=== PATIENT | male | born 1975 | race Caucasian/White ===

== ENCOUNTER 2017-07-15 16:39 | Observation (INO) ==
[2017-07-15] MEDS ORDERED: Aspirin 81 MG TAB.CHEW PO ONE (17:02)
--- NOTE | 2017-07-15 17:13 | Emergency Department Note ---
Disposition Clinical Impression: Chest pain Qualifiers: Chest pain type: unspecified Qualified Code(s): R07.9 - Chest pain, unspecified Hypertension Qualifiers: Hypertension type: unspecified Qualified Code(s): I10 - Essential (primary) hypertension Disposition: Admitted As Inpatient Condition: Good Referrals: NONE,PCP [Primary Care Provider] - Forms: ED Satisfaction Letter Time of Disposition: 18:50 Chest Pain HPI - General Chief Complaint: ED Chest Pain Stated Complaint: chest pain Time Seen by Provider: 07/15/17 16:44 Source: patient Mode of arrival: private vehicle Limitations: no limitations Vital Signs Reviewed: Yes Nursing Notes Reviewed: Yes - History of Present Illness HPI Narrative: 41-year-old male no medical history who presents to the ER with chief complaint of chest pain. Patient states he started having chest pain this morning around 9:00. Reports it was a pain in the center of his chest. No radiating features. Said he has a little short of breath during that time. No diaphoresis nausea or vomiting. No lightheadedness or dizziness. He was checked out by an EMT across the street and noted that he had high blood pressure readings. He states that his diastolic usually runs a little higher than 80. He is not on medications for hypertension. He endorses pain in the center of his chest. No recent illnesses. Denies any new anxiety or stress. No other complaints. Pt complaint: chest pain Onset (ago): hour(s) Duration: constant Onset: during rest Pain Location: substernal Severity: moderate Severity scale (1-10): 7 Quality: aching Pain Radiation: none Improves with: nothing Worsens with: nothing Associated symptoms: Reports: dyspnea. Denies: nausea, vomiting, diaphoresis Treatments prior to arrival chest pain: none - Related Data On Oral Contraceptives: No Home Medications Medication Instructions Recorded Confirmed No Known Home Drugs 07/15/17 07/15/17 Allergies Allergy/AdvReac Type Severity Reaction Status Date / Time No Known Allergies Allergy Verified 07/15/17 16:40 All systems ED: reviewed and negative except as stated. Constitutional: Denies: fever Cardiovascular: Reports: chest pain Respiratory: Reports: dyspnea. Denies: cough Gastrointestinal: Denies: abdominal pain, nausea, vomiting Chest Pain PMH - Past Medical History Medical history: Reports: other Psychiatric history: Reports: no psych history - Social History Smoking Status: Never smoker Alcohol use: Reports: occasionally Drug use: Reports: none Physical Exam - General Limitations: no limitations General appearance: alert, in no apparent distress - Head Head exam: atraumatic, normocephalic - Eye Eye exam: Present: normal appearance - ENT ENT exam: normal exam - Neck Neck exam: Present: normal inspection, full ROM - Chest Chest inspection: Present: normal inspection, symmetric chest wall rise - Respiratory Respiratory exam: Present: normal lung sounds bilaterally - Cardiovascular Cardiovascular exam: Present: regular rate, normal rhythm, normal heart sounds - Abdominal Exam Abdominal exam: Present: soft, Non-Tender. Absent: tenderness - Extremities Exam Extremities exam: Present: normal inspection, full ROM - Expanded Upper Extremity Exam Shoulder exam: Present: normal inspection, full ROM Arm exam: Present: normal inspection, full ROM Elbow exam: Present: normal inspection, full ROM Forearm/Wrist exam: Present: normal inspection, full ROM Hand exam: Present: normal inspection, full ROM - Expanded Lower Extremity Exam Hip/Pelvis exam: Present: normal inspection, full ROM Upper leg exam: Present: normal inspection, full ROM Knee exam: Present: normal inspection, full ROM Lower leg exam: Present: normal inspection, full ROM Ankle exam: Present: normal inspection, full ROM Foot/toe exam: Present: normal inspection, full ROM - Skin Skin exam: Present: warm, dry Course Course Narrative: Patient seen and examined. Vital signs reviewed. We will get an EKG, chest x- ray as well as labs including troponin. Patient is profoundly hypertensive here. Nitroglycerin ordered. - Reevaluation(s) Reevaluation #1: Chest pain-free after nitroglycerin. Hypertension has resolved. Agreeable with admission. Vital Signs Temperature 98.0 F 07/15/17 16:40 Pulse Rate 101 07/15/17 16:40 Respiratory Rate 18 07/15/17 16:40 Blood Pressure 174/103 07/15/17 16:40 O2 Sat by Pulse Oximetry 99 07/15/17 16:40 Temperature 98.0 F 07/15/17 16:40 Pulse Rate 81 07/15/17 18:37 Respiratory Rate 16 07/15/17 18:37 Blood Pressure 123/93 07/15/17 18:37 O2 Sat by Pulse Oximetry 96 07/15/17 18:37 Oxygen Delivery Oxygen Delivery Room Air Chest Pain - MDM Narrative Medical decision making narrative: 41-year-old male with a medical history presents to the ER due to chest pain and hypertension. Onset this morning. EKG without ischemic features. Chest x- ray unremarkable. Noted to be profoundly hypertensive upon arrival. Pain and hypertension resolved with nitroglycerin. Initial troponin negative. He is admitted to the hospitalist service for chest pain evaluation. - Lab Data Lab results reviewed: Yes I reviewed the patient's lab results. Result diagrams: 07/15/17 17:10 07/15/17 17:10 Lab Results 07/15/17 07/15/17 07/15/17 Range/Units 17:10 17:10 17:10 WBC 11.2 H (4.3-11.1) K/mcL RBC 5.36 (4.19-5.50) M/mcL Hgb 16.1 (12.9-16.9) g/dL Hct 46.2 (37.5-50.1) % MCV 86.2 (83.0-100.0) fL MCH 30.0 (28.0-33.3) pg MCHC 34.8 (31.6-35.5) g/dL RDW 11.9 (11.5-14.5) % Plt Count 233 (140-400) K/mcL MPV 10.4 (9.4-12.4) fL Immature Gran % 0.7 (0-4) % Seg Neutrophils % 72.8 % Lymphocytes % 16.8 % Monocytes % 6.6 % Eosinophils % 2.4 % Basophils % 0.7 % Neutrophils # 8.1 (1.6-8.9) K/mcL Lymphocytes # 1.9 (0.6-4.6) K/mcL Monocytes # 0.7 (0.0-1.3) K/mcL Eosinophils # 0.3 (0.0-0.6) K/mcL Basophils # 0.1 (0.0-0.2) K/mcL Sodium 136 (136-145) mEq/L Potassium 3.7 (3.5-5.1) mEq/L Chloride 102 (98-107) mEq/L Carbon Dioxide 27 (23-29) mEq/L BUN 9 (6-20) mg/dL Creatinine 1.10 (0.70-1.30) mg/dL Est GFR ( Amer) > 60 (> 60) Est GFR (Non-Af Amer) > 60 (> 60) BUN/Creatinine Ratio 8 (6-26) Glucose 109 H (70-105) mg/dL Calculated Osmolality 281 (280-300) Calcium 9.3 (8.6-10.3) mg/dL Troponin I < 0.03 (< 0.04) ng/mL - Radiology Data Radiology results reviewed: Yes I reviewed the patient's radiology results. Chest X-Ray 07/15/17 17:02 IMPRESSION: Negative portable study. D/ / Ebony Jackson Cha, MD / Ebony Jackson Cha, MD Interpreting Provider: Ebony Jackson Cha, MD - EKG Data EKG attestation: Yes I reviewed and interpreted this EKG. EKG results narrative: EKG demonstrates sinus rhythm with a rate of 87 bpm. Normal axis. Normal intervals. Normal R-wave progression. ST elevation in lead 3 of less than 1 mm. No contiguous lead elevation. No gross depressions. Heart Score - Score History: Moderately Suspicious EKG: Normal Age: Less than 45 Risk Factors: No risk factors known Troponin: Less than normal limit HEART Score Total: 1 S.B.A.R. - Moy.B.A.Crow Situation: Demographics, MOA Background: Presenting Complaint, Relevant PMH, Meds, & Allergies Assessment: Vital Signs, Course and respsone to treatment, Exam Concerns, Patient/Family Expectation, Pertinant Lab Results Recommendation: Barrier(s) to disposition, Recommendation based on pending studies, treatments, or consults S.B.A.R. Report Given to: Dr. Hitesh GarciaBMichelleARoel Repor Time: 18:19 Attestation Statement - Attestation Attestation: I, Ezequiel Chaves DO, examined this patient [id number] and my medical decision-making was reviewed with Dr. Flip Roberts, Resident Physician. I agree with the documented findings, disposition and treatment plan as described except to the extent set forth below. Please see my progress notes for details. 41-year-old male presents to emergency room with onset of chest pressure tightness and pain that started approximately 9 AM this morning. Patient has never had ending like this in the past. He does have a history of acid reflux but describes this as being different. Patient only has intermittent hypertension at home for medical issues. Patient does not take any other medications. Blood today he has had persistent pain and discomfort. Eventually the family decided to come in the emergency room because he did have persistently worsening pain with exertion while at work. Patient currently is denying any fevers or chills nausea vomiting diarrhea. Denies any shortness of breath headache or vision change. On arrival he still had intermittent chest discomfort that was worse than what was initially. Initial EKG did not show any acute signs of ST segment elevation or abnormality. No acute signs of myocardial infarction were noted. Nitroglycerin trial was established with 3 doses of nitroglycerin being given with complete relief of the chest discomfort and pain. Patient is low risk for cardiac related disease with secondary to the presenting symptoms as well as the response to nitroglycerin we recommended admission to the hospital for definitive management. He is physical exam is unremarkable his heart is regular's lungs are clear his abdomen is soft nontender nondistended with no guarding no rigidity. Patient did accommodate the recommendation for admission after the workup will be completed. Aspirin was given here in the emergency room nitroglycerin was provided. See detailed documentation of physical exam, medical intervention, medical decision-making and disposition of the resident physician's note 1830 Patient is resting comfortably in the bed at this time. Symptoms have completely resolved. The hospitalist team was contacted for admission. Patient will not be started on a heparin drip at this point considering his low risk. Patient did have complete resolution of his symptoms with heparin. Further evaluation treatment course we established an inpatient setting. Patient verbalizes had no other complaints or issues throughout the course of care. Labs are otherwise unremarkable at this time. 1900 Pt is admitted at this time time.
[2017-07-15 17:23] LABS: Basophils # 0.1 K/mcL (0.0-0.2); Basophils % 0.7 %; Eosinophils # 0.3 K/mcL (0.0-0.6); Eosinophils % 2.4 %; Hematocrit 46.2 % (37.5-50.1); Hemoglobin 16.1 g/dL (12.9-16.9); Immature Granulocytes % 0.7 % (0-4); Lymphocytes # 1.9 K/mcL (0.6-4.6); Lymphocytes % 16.8 %; Mean Corpuscular HGB Conc 34.8 g/dL (31.6-35.5); Mean Corpuscular Volume 86.2 fL (83.0-100.0); Mean Platelet Volume 10.4 fL (9.4-12.4); Monocytes # 0.7 K/mcL (0.0-1.3); Monocytes % 6.6 %; Neutrophils # 8.1 K/mcL (1.6-8.9); Platelet Count 233 K/mcL (140-400); Red Blood Count 5.36 M/mcL (4.19-5.50); Red Cell Distribution Width 11.9 % (11.5-14.5); Segmented Neutrophils % 72.8 %
[2017-07-15] MEDS: Nitroglycerin 0.4 MG TAB.SUBL SL PRN ×3 (17:23→17:44)
[2017-07-15 17:44] LABS: BUN/Creatinine Ratio 8 (6-26); Blood Urea Nitrogen 9 mg/dL (6-20); Calcium 9.3 mg/dL (8.6-10.3); Carbon Dioxide 27 mEq/L (23-29); Chloride 102 mEq/L (98-107); Glucose 109 mg/dL (70-105); Osmolality,Calculated 281 (280-300); Potassium 3.7 mEq/L (3.5-5.1); Sodium 136 mEq/L (136-145); eGFR For African Americans > 60 (> 60); eGFR For Non-African Americans > 60 (> 60)
[2017-07-15] MEDS ORDERED: Naloxone 0.4 MG/ML INJ IVP PRN (20:23)
--- NOTE | 2017-07-15 20:26 | Internal Med History&Physical ---
Date of Encounter: 07/15/17 Time of Encounter: 20:26 Assessment and Plan (1) Chest pain Current visit: Yes Status: Acute trend trop nitro prn stress testing in the morning Qualifiers: Chest pain type: precordial pain Qualified Code(s): R07.2 - Precordial pain (2) Hypertension Current visit: Yes Status: Acute follow up pcp and close monitoring inpatient if confirm HTN trend, will benefit for medicine Qualifiers: Hypertension type: essential hypertension Qualified Code(s): I10 - Essential (primary) hypertension Internal Medicine - H&P: HPI Chief complaint: Chest pain History of present illness: Mr. Barnard is a 41 year old male who is previously health, on no medications who presents with chest pain eval. Symptoms began this morning when he woke up. He felt a sore throat which developed into chest pain at around 930 AM. Through the day, he developed progression of his chest pain described as sternal in location, no radiation, pressure sensation, 7/10. At 4 pm, the pain was at the worse. Pain improved with nitro and aspirin. BP measured recorded 172/116. His father had PR age 75. He is a non smoker EKG personally reviewed with rate 87, non-specific st -t changes XR/XR chest 1V portable IMPRESSION: Negative portable study. Past Med Surg Social Fam HX - Past Medical History Medical history: other Psychiatric history: no psych history - Past Surgical History Surgical History: no surgical history - Social History Smoking Status: Never smoker Smokeless Tobacco Status: No Alcohol use: occasionally Drug use: none - Additional Family History Additional family history: CAD , PR Internal Medicine - H&P: Meds No Known Home Drugs 07/15/17 [History] 3 Allergy/AdvReac Type Severity Reaction Status Date / Time No Known Allergies Allergy Verified 07/15/17 16:40 All Systems PM: A 10-system review of systems was performed and is negative for pertinent findings except as documented above in the HPI. Review of systems: ROS 14 point review of systems reviewed as best as possible given presentation. Pertinent positive or negative as per HPI or otherwise reviewed as negative - Constitutional Vitals: Temp Pulse Resp BP Pulse Ox 97.8 F 78 16 148/92 96 07/15/17 19:35 07/15/17 19:35 07/15/17 19:35 07/15/17 19:35 07/15/17 19:35 Exam: General - AAO x 3 Psych - Appropriate affect/speech. No agitation Eyes - JUDITH. Eye lids intact. No scleral icterus Heart - Sinus. RRR. S1 and S2 present. No added HS/murmurs appreciated. No elevated JVD appreciated. Lung - Adequate air entry b/l, No crackles/wheezes appreciated GI - Soft, non-tender. No hepatosplenomegaly/ascites. BS+ - No CVA/suprapubic tenderness or palpable bladder distension Skin - Intact. No rash/petechiae/ecchymosis. Warm extremities MSK - Joints with normal ROM. No joint swellings Internal Med - H&P Results - Labs CBC & Chem 7: 07/15/17 17:10 07/15/17 17:10
[2017-07-16 14:08] LABS: Adenovirus Not Detected (Not Detect); Bordetella Pertussis Not Detected (Not Detect); Chlamydophila pneumoniae Not Detected (Not Detect); Coronavirus 229E Not Detected (Not Detect); Coronavirus HKU1 Not Detected (Not Detect); Coronavirus NL63 Not Detected (Not Detect); Coronavirus OC43 Not Detected (Not Detect); Human Metapneumovirus Not Detected (Not Detect); Human Rhinovirus/Enterovirus Not Detected (Not Detect); Influenza A Subtype 2009 H1 Not Detected (Not Detect); Influenza A Untypeable Not Detected (Not Detect); Influenza B Not Detected (Not Detect); Mycoplasma pneumoniae Not Detected (Not Detect); Parainfluenza Virus 1 Not Detected (Not Detect); Parainfluenza Virus 2 Not Detected (Not Detect); Parainfluenza Virus 3 Not Detected (Not Detect); Parainfluenza Virus 4 Not Detected (Not Detect); Respiratory Syncytial Virus Not Detected (Not Detect)
[2017-07-16 15:16] VITALS: BP 118/75
--- NOTE | 2017-07-16 15:34 | Discharge Summary ---
Date of Encounter: 07/16/17 Time of Encounter: 15:32 - Discharge Diagnosis (1) Chest pain Priority: Primary Status: Acute Comments: Troponins negative 3 sets, stress test completed with no ischemia. Okay for discharge Patient is pain-free and denies shortness of breath or other complaints Qualifiers: Chest pain type: precordial pain Qualified Code(s): R07.2 - Precordial pain (2) Hypertension Priority: Primary Status: Acute Comments: Patient's blood pressure was elevated in the ER at 172/116. He was given nitroglycerin and it returned to acceptable levels. He is not on antihypertensive, he does not have a primary care doctor His significant other is a nurse We discussed keeping a blood pressure log and she is going to arrange for him to see the nurse practitioner at her PCPs office Discussed a low-fat diet Qualifiers: Hypertension type: essential hypertension Qualified Code(s): I10 - Essential (primary) hypertension - Discharge Medications Home Medications: No Known Home Drugs 07/15/17 [History] Allergies/Adverse Reactions: 3 Allergy/AdvReac Type Severity Reaction Status Date / Time No Known Allergies Allergy Verified 07/15/17 16:40 Procedures/tests Complete & Pending: Procedures Performed prior 72 hours Category Date Time Status NM rafael perf SPECT multi [NM] Routine Exams 07/15/17 20:22 Taken SP exercise nuclear stress Routine Y 07/16/17 20:22 Completed Date of admission: 07/15/17 19:20 Primary care physician: PCP NONE Discharging clinician: Kylah Pak Anticipated date of discharge: 07/16/17 - Patient Status Disposition: Home, Self-Care Condition: Good Functional capacity at discharge: independent ambulation Overall status at discharge: patient is back to baseline - Discharge Instructions Follow Up With: NONE,PCP [Primary Care Provider] - Additional Instructions: Establish with a PCP and follow up for ear elevated blood pressure in the ER. Blood pressures have been stable here. Avoid salt in the diet. Keep a blood pressure diary and take that to the physician's office with you. - Diet and Activity Activity: resume usual activities as tolerated Diet: advance to your usual diet Hospital course: Mr. Barnard is a 41 year old male - Time Spent with Patient Total time spent providing and/or coordinating discharge services: - Constitutional Vitals: Temp Pulse Resp BP Pulse Ox 98.4 F 79 18 118/75 98 07/16/17 15:13 07/16/17 15:13 07/16/17 15:13 07/16/17 15:13 07/16/17 15:13
--- NOTE | 2017-07-18 16:13 | Electrocardiograph Report ---
[place] [id number] Test Date: 2017-07-15 Pat Name: Kris Barnard Department: 104 Room: 3B43 Gender: M Director Of Brand Marketing: AM : 1975 Requested By: Flip Roberts Order Number: [id number] Reading MD: Guicho Liu DO Measurements Intervals Morton Rate: 87 P: 29 ME: 148 QRS: 33 QRSD: 90 T: 46 QT: 331 QTc: 376 Interpretive Statements SINUS RHYTHM NONSPECIFIC ST-T WAVE ABNORMALITY Electronically Signed On 07-18-2017 16:11:59 EST by Guicho Liu DO
== END 2017-07-16 16:42 | disposition home or self-care (01) ==
LOC: 3ANU 16:39 → EMEROO 16:39 → 3ANU 19:26 → 3BNU 19:27
PROVIDERS: ADMIT Internal Medicine; ATTEND Registered Nurse